=== PATIENT | female | born 1970 | race Caucasian/White ===

== ENCOUNTER 2016-09-22 11:15 | Emergency (ER) | payer BC ==
[~2016-09-22] VITALS: Ht 165.1 cm; Wt 101.7 kg
[~2016-09-22 11:15] MED LIST: ATIVAN0.5 MG PO; Aspirin E.C. PO; Lopressor PO
[2016-09-22 12:26] LABS: HEMATOCRIT 42.5 % (36.0-46.0); MCH 29.7 PG (29.0-34.0); MCHC 32.9 G/DL (30.0-36.0); MEAN PLAT.VOLUME 11.9 uM^3 (9.5-12.4); PLATELET COUNT 335 K/uL (156-360); RED BLOOD COUNT 4.72 M/uL (3.80-5.20); WHITE BLOOD COUNT 9.3 K/uL (4.1-10.2)
[2016-09-22] MEDS ORDERED: SOTALOL80 MG PO (12:34)
[2016-09-22 12:42] LABS: CHLORIDE 105 mEq/L (99-109); POTASSIUM 3.8 mEq/L (3.7-5.4); SODIUM 137 mEq/L (136-147)
[2016-09-22 12:44] LABS: GLUCOSE 129 mg/dL (70-99)
[2016-09-22 12:45] LABS: ANION GAP 10 MEQ/L (2-14)
[2016-09-22 12:46] LABS: TROP-I INTERPRETATION NEGATIVE; TROPONIN-I < 0.01 ng/mL (0.0-0.30)
[2016-09-22 12:48] LABS: GFR ESTIMATE (CALCULATED) > 59 mL/min/
[2016-09-22 12:49] LABS: UREA NITROGEN (BUN) 15 mg/dL (9-23)
[2016-09-22 14:52] LABS: TROP-I INTERPRETATION NEGATIVE; TROPONIN-I < 0.01 ng/mL (0.0-0.30)
[2016-09-22 15:07] VITALS: BP 123/79
== END 2016-09-22 15:15 | disposition home or self-care (01) ==
LOC: EME 11:15
PROVIDERS: Nurse Practitioner Family
DX: I48.91 Unspecified atrial fibrillation (principal); E86.0 Dehydration; I10 Essential (primary) hypertension; Z79.82 Long term (current) use of aspirin; Z88.0 Allergy status to penicillin
CPT/HCPCS: 71020; 80048; 84484; 85027; 93005; 99281; 99284; J7030

== ENCOUNTER 2017-02-23 11:32 | Emergency (ER) | payer BC ==
[~2017-02-23] VITALS: Ht 167.6 cm; Wt 101.9 kg
[~2017-02-23 11:32] MED LIST changes: +SOTALOL80 MG PO
[2017-02-23] MEDS ORDERED: ONCE DAILY1 EACH PO (16:18)
[2017-02-23] MEDS ORDERED: MEDROL DOSEPAK4 MG PO (17:38)
[2017-02-23 17:58] VITALS: BP 132/84
== END 2017-02-23 18:40 | disposition home or self-care (01) ==
LOC: EME 11:32
DX: G51.0 Bell's palsy (principal); Z79.82 Long term (current) use of aspirin
CPT/HCPCS: 70450; 70551; 99281; 99284

== ENCOUNTER 2017-07-30 02:24 | Emergency (ER) | payer BC ==
[~2017-07-30] VITALS: Ht 165.1 cm; Wt 100.4 kg
[~2017-07-30 02:24] MED LIST changes: +MEDROL DOSEPAK4 MG PO; +ONCE DAILY1 EACH PO
[2017-07-30 02:54] LABS: HEMATOCRIT 38.3 % (36.0-46.0); MCH 30.7 PG (29.0-34.0); MCHC 33.9 G/DL (30.0-36.0); MCV 90.5 FL (83-99); PLATELET COUNT 192 K/uL (156-360); RBC DIS.WIDTH-CV 13.2 % (11.8-14.6); RBC DIS.WIDTH-SD 43.7 % (39-53); RED BLOOD COUNT 4.23 M/uL (3.80-5.20); WHITE BLOOD COUNT 9.7 K/uL (4.1-10.2)
[2017-07-30 03:12] LABS: CHLORIDE 104 mEq/L (99-109); POTASSIUM 3.5 mEq/L (3.7-5.4); SODIUM 140 mEq/L (136-147)
[2017-07-30 03:13] LABS: GLUCOSE 113 mg/dL (70-99)
[2017-07-30 03:17] LABS: CREATININE 0.8 mg/dL (0.6-1.3); GFR ESTIMATE (CALCULATED) > 59 mL/min/
[2017-07-30 03:18] LABS: UREA NITROGEN (BUN) 12 mg/dL (9-23)
[2017-07-30 03:21] LABS: TROP-I INTERPRETATION NEGATIVE; TROPONIN-I < 0.01 ng/mL (0.0-0.30)
[2017-07-30 04:48] VITALS: BP 132/89
== END 2017-07-30 04:50 | disposition home or self-care (01) ==
LOC: EME 02:24
DX: R00.2 Palpitations (principal); I10 Essential (primary) hypertension; Z79.82 Long term (current) use of aspirin; Z88.0 Allergy status to penicillin; Z88.8 Allergy status to other drugs, medicaments and biological substances
CPT/HCPCS: 71046; 80048; 84484; 85027; 93005; 99281; 99285